=== PATIENT | female | born 1975 | race Caucasian/White ===

== ENCOUNTER 2022-02-15 09:53 | Outpatient (CLI) | payer OTHER, SELFPAY ==
--- NOTE | 2022-02-16 22:23 | WPDPFTINT ---
PFT Procedure Performed PFT Procedure Performed Spirometry with Pre/Post Bronchodilator Plethysmography (Lung Vol) Diffusing Cap (DLCO) Flow Vol Loop PFT Interpretation DOS: 02/15/2022 REQUESTING: Dr. Matt Moraes REASON FOR TESTING: Dyspnea PULMONARY FUNCTION TESTS Results are reliable and reproducible Spirometry: Pre-bronchodilator FEV1 is 91% predicted, 2.91 L, normal. Pre bronchodilator FVC is 93% predicted, 3.71 L, normal. The FEV1/FVC ratio is 78%, normal. There is no significant change in flows after bronchodilator administration. Lung volumes: Total lung capacity is 77% predicted, 4.22 L, mildly reduced consistent with a mild restrictive pattern. FRC is 88% predicted, 2.71 L, normal. ERV is 49%, 0.61 L, reduced. Residual volume is 28% predicted, 0.51 L, reduced. RV/TLC is 12%, reduced. Airway resistance is increased. Diffusion: DLCO is 97%, normal. Flow volume loop: Unremarkable. IMPRESSION: This study shows normal spirometry without response to bronchodilator, a mild restrictive impairment without air trapping, and normal diffusion. A normal DLCO with decreased TLC suggests a non-pulmonary cause for restriction. The BMI is not elevated which eliminates obesity as a cause. Consider a chest x-ray to evaluate for elevated diaphragm. Restriction can mask obstruction. Shayy Foster MD
== END 2022-02-15 09:54 | disposition home or self-care (01) ==
LOC: ANHPFT 09:55
PROVIDERS: PCP Family Medicine; Visit Provider Family Medicine
DX: R06.00 Dyspnea, unspecified (principal)
CPT/HCPCS: 94060; 94726; 94729

== ENCOUNTER 2022-02-17 14:52 | Outpatient (CLI) | payer OTHER, SELFPAY ==
--- NOTE | ~2022-02-17 | XR_ITS ---
XR chest 2V DATE: 02/17/2022 15:14 INDICATION: Dyspnea TECHNIQUE: PA and lateral views COMPARISON: None FINDINGS: Normal heart size. No hilar or mediastinal enlargement. No pulmonary infiltrate or consolid ation, pleural effusion or pulmonary vascular congestion or pneumothorax. Included skeletal structure s are unremarkable other than mild levoscoliosis of the upper thoracic spine. IMPRESSION: No active cardiopulmonary disease Reviewed, dictated and finalized at location A.
== END 2022-02-17 14:53 | disposition home or self-care (01) ==
PROVIDERS: PCP Family Medicine; Visit Provider Family Medicine
DX: R06.00 Dyspnea, unspecified (principal); M41.9 Scoliosis, unspecified
CPT/HCPCS: 71046

== ENCOUNTER 2025-02-05 07:22 | Outpatient (CLI) | payer OTHER, SELFPAY ==
--- NOTE | ~2025-02-05 | MM_ITS ---
EXAMINATION: MM screening eddie BI w feng HISTORY: Screening TECHNIQUE: Craniocaudal and mediolateral oblique 3-D tomosynthesis images were obtained and synthetic 2-D images were generated. CAD analysis was submitted and interpreted. COMPARISON: No prior mammogram is available for comparison at this institution. BREAST PARENCHYMAL COMPOSITION: Dense: The breasts are extremely dense, which lowers the sensitivity of mammography. FINDINGS: There are asymmetries in the upper outer quadrant of the right breast, posterior third and in the inferior and lateral aspects of the left breast. There are no suspicious calcifications. IMPRESSION: 1. Bilateral breast asymmetries. 2. Additional mammographic views and possible breast ultrasound are recommended. BI-RADS Category 0: Incomplete: Needs additional imaging evaluation. Reviewed, dictated and finalized at location B. IMPRESSION: 1. Bilateral breast asymmetries. 2. Additional mammographic views and possible breast ultrasound are recommended . BI-RADS Category 0: Incomplete: Needs additional imaging evaluation.
--- OUTSIDE RECORDS SUMMARY | 2025-02-05 07:26 | XMS_ITS | Clinical Summary ---
Author Organization [employer] 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 Gender Identity Not on file Sexual Orientation Not on file Plan of Treatment Health Maintenance Due Date Last Done Comments DTAP/TDAP/TD VACCINES (1 - Tdap) 1996 HEPATITIS B VACCINES (1 of 3 - 19+ 3-dose series) 1996 HPV/Cotest (21-29) 1998 PAP SMEAR 1998 CERVICAL CANCER SCREENING 2007 HPV/Cotest (30-65) 2007 PAP SMEAR 2007 BREAST CANCER SCREENING 2017 COLORECTAL SCREENING 2022 Colorectal Cancer Screening 2022 FIT-DNA Q 3 years 2022 FIT/FOBT Q 1 year 2022 Flex Sig/CT Colonography Q 5 years 2022 INFLUENZA VACCINE (#1) 2024 HPV VACCINES Aged Out No longer eligi ble based on patient's age to complete this topic PNEUMOCOCCAL VACCINE 0-49 YEARS Aged Out No longer eligible based on patient's age to complete this topic Insurance [facility] [id number] Care Teams Poultry Helper Relationship Specialty [place] [id number] [address] PCP - General Obstetrics and Gynecology 09/19/23
--- OUTSIDE RECORDS SUMMARY | 2025-02-05 07:27 | XMS_ITS | Clinical Summary ---
Author Organization [facility] Address [address] [place] [address] Care Team Providers Care Veneer Jointer Returner Name Role Phone Unavailable Primary Care Provider Unavailabl e Social History Tobacco Use Types Packs/Day Years Used Date Smoking Tobacco: Never Assessed Comments Unknown Sex and Gender Information Value Date Recorded Sex Assigned at Not on file Legal Sex Female 8:22 PM CDT Gender Identity Not on file Sexual Orientation Not on file Last Filed Vital Signs Vital Sign Reading Time Taken Comments Blood Pressure 102/58 07/13/2016 1:58 PM CDT Pulse 81 07/13/2016 1:58 PM CDT Temperature - - Respiratory Rate - - Oxygen Saturation - - Inhaled Oxygen Concentration - - Weight 70.8 kg (156 lb) 07/13/2016 1:58 PM CDT Height 170.2 cm (5' 7 ) 07/13/2016 1:58 PM CDT Body Mass Index 24.43 07/13/2016 1:58 PM CDT Plan of Treatment Health Maintenance Due Date Last Done Comments Cervical Cancer Screening Pa p Smear (Age 30 to 64) Every 3 Years 1977 Colorectal Cancer Screening Colonoscopy (10 Years) 1977 Annual Physical 1980 Hepatitis C 1995 DTaP, Tdap and Td Vaccines ( 1 - Tdap) 1996 Hepatitis B Vaccines (1 of 3 - 19+ 3-dose series) 1996 Cervical Cancer Screening Pa p with HPV Testing (Age 30 to 64) Every 5 Years 2007 Cervical Cancer Screening with HPV 2007 Mammogram Screening 2017 COVID-19 Vaccine (2023-2 5 season) 2024 Meningococcal B Vaccine Aged Out No l onger eligible based on patient's age to complete this topic Meningococcal Vaccine Aged Out No mariza denise eligible based on patient's age to complete this topic Pneumococcal Vaccine: Pediat rics (0 to 5 Years) and At-Risk Patients (6 to 49 Years) Aged Out No longer eligible b ased on patient's age to complete this topic RSV Immunizations Under 20 Months Aged Out No longer eligible based on patient's age to complete this topic
--- OUTSIDE RECORDS SUMMARY | 2025-02-05 07:27 | XMS_ITS | Clinical Summary ---
Author Organization [facility] [employer] Address [address] [place] [address] Care Team Providers Care Core Laying Machine Operator Name Role Phone Unavailable Primary Care Provider Unavailabl e Source Comments [facility] [employer],non-owned Affiliates and Associated Physician Practices is amultiple site organization consisting of ambulatory clinics and hospital sitesin [place], [place], [place] and [place]. This disclosure is being madepursuant to the Care Everywhere program and may not contain all information available regarding this patient. Last updated 18.doo [facility] Allergies No known active allergies Medications * Be aware that medications may not be up to date on this document. Alwaysverify current medications with the patient. hydrocortisone (HYTONE) 2.5 % ointment 30 g 1 11/29/2017 Active phentermine (Adipex-P) 37.5 MG tablet TAKE 1/2 TO 1 TABLET BY MOUTH EVERY MORNING FOR WEIGHT LOSS 01/07/2024 Active spironolactone (Aldactone) 100 MG tablet Take 0.5 (one-half) tablet by mouth once daily 12/30/2023 Active multivitamins plus minerals chew tablet Take 1 (one) tablet by mouth daily with food Active vitamin D3 (Cholecalcifero l) 10 MCG (400 UNIT) tablet Take 1 (one) tablet by mouth once daily Active tranexamic acid (Lysteda) 650 MG tablet Take 2 (two) tablets by mouth 3 times daily 30 tablet 11 01/26/2024 Active Family History Medical History Relation Name Comments Cancer - Skin, Non Melanoma Mother CVA Neg Hx Cancer - Breast Neg Hx Cancer - Other Neg Hx Cancer - Skin, Melanoma Neg Hx Eczema Neg Hx Hemophilia Neg Hx Psoriasis Neg Hx Relation Name Status Comments Mother Social History Tobacco Use Types Packs/Day Years Used Date Smoking Tobacco: Never Passive Smoke Exposure: Never Smokeless Tobacco: Never Tobacco Cessation:Counseling Given: Not Answered Alcohol Use Standard Drinks/Week Comments Not Currently 0 (1 standard drink = 0.6 oz pur e alcohol) socially PHQ-2 Answer Date Recorded Patient Health Questionnaire-2 Score 0 01/26/2024 Comments Unknown Sex and Gender Information Value Date Recorded Sex Assigned at Not on file 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 Gender Identity Not on file Sexual Orientation Not on file Last Filed Vital Signs Vital Sign Reading Time Taken Comments Blood Pressure 122/70 01/26/2024 3:07 PM CDT Pulse - - Temperature - - Respiratory Rate - - Oxygen Saturation - - Inhaled Oxygen Concentration - - Weight 70.8 kg (156 lb) 01/26/2024 3:07 PM CDT Height 170.2 cm (5' 7 ) 01/26/2024 3:07 PM CDT Body Mass Index 24.43 01/26/2024 3:07 PM CDT Plan of Treatment Health Maintenance Due Date Last Done Comments COLOGUARD (AGES 45-75) - COL ON CA SCREENING 1977 COLON MONITORING 1977 COLONOSCOPY - COLON CA SCREENING 1977 CT COLONOGRAPHY - COLON CA SCREENING 1977 Colorectal Cancer Screening 1977 FIT - COLON CA SCREENING 1977 FLEX SIG - COLON CA SCREENING 1977 LIPID TESTING 1977 MAMMOGRAM 1977 PAP SMEAR 1977 HIV SCREENING 1992 HEPATITIS C SCREENING 11/29/1995 DTAP/TDAP/TD VACCINES (1 - Tdap) 1996 HEPATITIS B VACCINE (1 of 3 - 19+ 3-dose series) 1996 COVID-19 VACCINE ( - 2023-2 5 season) 2024 DEPRESSION SCREENING 10/24/2024 01/26/2024 INFLUENZA VACCINE (Season Ended) 2025 ZOSTER VACCINE (1 of 2) 2027 HIB VACCINE Aged Out No longer eligi ble based on patient's age to complete this topic HPV VACCINE Aged Out No longer eligi ble based on patient's age to complete this topic MENINGOCOCCAL (Group B) VACC INE SHARED DECISION-MAKING Aged Out No longer eligibl e based on patient's age to complete this topic MENINGOCOCCAL GROUPS A/C/Y/W VACCINE Aged Out No longer eligible b ased on patient's age to complete this topic PNEUMOCOCCAL VACCINE Aged Out No long er eligible based on patient's age to complete this topic [place] [address] [facility]
--- OUTSIDE RECORDS SUMMARY | 2025-02-05 07:27 | XMS_ITS | Encounter Summary ---
Author Organization [facility] Address [address] [place] [address] Care Team Providers Care Data Warehousing Specialist Name Role Phone Unavailable Primary Care Provider Unavailabl e Encounter Details Date Type Department Care Team (Late st Contact Info) Description 03/26/2024 Lab Requisition [facility] - DermPath Lab [address] [facility] [place] [address] Nakia Riley DO [address] [facility] [address] [place] [address] Social History Tobacco Use Types Packs/Day Years Used Date Smoking Tobacco: Never Passive Smoke Exposure: Never Smokeless Tobacco: Never Alcohol Use Standard Drinks/Week Comments Not Currently 0 (1 standard drink = 0.6 oz pur e alcohol) socially PHQ-2 Answer Date Recorded Patient Health Questionnaire-2 Score 0 01/26/2024 Comments Unknown Sex and Gender Information Value Date Recorded Sex Assigned at Not on file 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 Gender Identity Not on file Sexual Orientation Not on file documented as of this encounter Plan of Treatment Not on file documented as of this encounter Procedures Procedure Name Priority Date/Time Associated Diagnosis Comments DERMATOPATHOLOGY Routine 03/26/2024 9:41 AM CDT documented in this encounter Results * DERMATOPATHOLOGY (03/26/2024 9:41 AM CDT) Case Report Dermatopathology Report Case: [id number] Authorizing Provider: Nakia Riley DO Collected: 03/26/2024 09:41 AM Ordering Location: [facility] - Received: 03/26/2024 03:34 PM DermPath Lab Pathologist: Taryn Barksdale MD Specimen: Skin, right thigh 2:56 PM CDT DERMATOPATHOLOGY LABORATORY Final Diagnosis Specimen A. SKIN, right thigh: DERMATOFIBROMA (D23.9) 2:56 PM T DERMATOPATHOLOGY LABORATORY Clinical History Df r/o Atypia 2:56 PM CDT DERMATOPATHOLOGY LABORATORY Gross Description Specimen A: Received is one formalin filled container labeled with the patient's name and designated right thigh. The specimen consists of a shave biopsy measuring 7x5x2 mm. Jar 0. 2:56 PM CDT DERMATOPATHOLOGY LABORATORY Microscopic Description Specimen A. SKIN, right thigh: There is epidermal hyperplasia. Within the dermis, there are fibrohistiocytic cells in haphazard array among coarse collagen bundles. 2:56 PM CDT DERMATOPATHOLOGY LABORATORY Disclaimer An external and internal positive and negative controls are appropriate for the histochemical, immunohistochemical and immunofluorescence stain(s) in this case (if any), except where stated explicitly. The performance characteristics of the stain(s) cited in this report were developed and its performance characteristic determined by the Dermatopathology Laboratory at [facility], directed by Dr. Laura Reardon. These tests need not be, and therefore are not, approved by the [place] Food and Drug Administration. The tests are used for clinical purposes. Billing Codes Specimen Charges Stain Charges 35628 1 2:56 PM CDT DERMATOPATHOLOGY LABORATORY Embedded Images 2:56 PM CDT DERMATOPATHOLOGY LABORATORY Pathology/Cytolo gy TISSUE SPECIMEN FROM SKIN / Unknown 03/26/2024 9:41 AM CDT 03/26/2024 3:34 PM CDT us Nakia Riley DO LAB - PATHOLOGY/CYTOLOGY ORDERABLES Final Result DERMATOPATHOLOGY LABORATORY [facility] - Department of Dermatology [address], [address] [phone] documented in this encounter Visit Diagnoses Not on filedocumented in this encounter
== END 2025-02-05 07:23 | disposition home or self-care (01) ==
LOC: CHSIMG 07:24
PROVIDERS: PCP Family Medicine; Visit Provider Specialist
DX: Z12.31 Encounter for screening mammogram for malignant neoplasm of breast (principal)
CPT/HCPCS: 77063; 77067

== ENCOUNTER 2025-02-22 10:34 | Outpatient (CLI) | payer OTHER, SELFPAY ==
--- NOTE | ~2025-02-22 | MMUS_ITS ---
EXAMINATION: MM diagnostic eddie BI w feng, US breast BI complete HISTORY: Follow-up breast asymmetries TECHNIQUE: Additional 3-D tomosynthesis images of the breasts were performed and synthetic 2-D images were generated. CAD analysis was submitted and interpreted. High resolution bilateral complete breas t ultrasound was performed. COMPARISON: Mammogram dated 02/05/2025 BREAST PARENCHYMAL COMPOSITION: Dense: The breasts are extremely dense, which lowers the sensitivity of mammography. FINDINGS: MAMMOGRAPHIC FINDINGS: There are no suspicious masses, calcifications or architectural distortion in either breast to sugges t malignancy. ULTRASOUND: Complete US of all 4 quadrants of the breast/s and retroareolar region was reviewed. Right breast: There are multiple cysts of the right breast. There are no suspicious masses in the rig ht breast to suggest malignancy. Left breast: There are multiple cysts of the left breast. At 2:00, 3 cm from the nipple there is an o mario hypoechoic 5 mm mass with parallel orientation, posterior acoustic enhancement and no internal va scularity, likely benign. At 7:00, 6 cm from the nipple there is an oval parallel oriented hypoechoic mass measuring 6 x 4 x 3 mm with heterogeneous internal echoes, no significant posterior features an d no internal vascularity, likely benign. IMPRESSION: 1. No evidence for malignancy in the right breast. Benign findings. Probable benign left breast kal s identified by ultrasound. 2. Recommend 6 month follow-up Limited left breast ultrasound BI-RADS category 3, probably benign findings. Reviewed, dictated and finalized at location A. IMPRESSION: 1. No evidence for malignancy in the right breast. Benign findings. Probable be nign left breast masses identified by ultrasound. 2. Recommend 6 month follow-up Limited left breast ultrasound BI-RADS category 3, probably benign findings.
--- OUTSIDE RECORDS SUMMARY | 2025-02-23 11:59 | XMS_ITS | Clinical Summary ---
Author Organization [facility] [employer] Address [address] [facility] [place] [address] Care Team Providers Care Physician Assistant Certified Name Role Phone Unavailable Primary Care Provider Unavailabl e Source Comments [facility] [employer],non-owned Affiliates and Associated Physician Practices is amultiple site organization consisting of ambulatory clinics and hospital sitesin [place], [place], [place] and [place]. This disclosure is being madepursuant to the Care Everywhere program and may not contain all information available regarding this patient. 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
--- OUTSIDE RECORDS SUMMARY | 2025-02-23 11:59 | XMS_ITS | Data Portability ---
Author Organization [employer] Address [address] [place] [phone] Assessment No assessment recorded. Plan of Treatment Reminders Order Date Submit Date Provider Last Modified By Organization Details Last Modified Time Details Appointments None recorded. Lab None recorded. Referral None recorded. Procedures None recorded. Surgeries None recorded. Imaging XR, ankle - room 14 016 016 Not available 6 04:28:20 XR, ankle - room 15. patient is NWB. Rule out fibula fx. 016 016 Not available 6 04:28:22 Medication Orders None recorded. Patient TargetsNo targets recorded. Patient InstructionsNo instructions recorded. Reason for Referral None Reported. Medical Equipment None Reported. Allergies No known drug allergies Medications Name Sig Start Date Stop Date Status Note LastModified by Organization Details LastModified Time norethindrone acetate 5 mg tablet active Not Available Not Available Not Available Vitals Date Recorded Body height Body weight Body mass index (BMI) Heart rate Systolic blood pressure Diastolic blood pressure Provider Name and Address Organization Details Last Updated DateTime 6 170.18 cm 71052.8 6 g 23.5 kg/m2 69 /min 118 mm[Hg] 69 mm[Hg] Re Hedrick [employer] 6 12:20:31 Date Recorded Body height Body weight Body mass index (BMI) Provider Name and Address Organization Details Last Updated DateTime 07/09/2016 170.18 cm 49878.86 g 23.5 kg/m2 Demarcus Fagan [employer] 07/09/2016 11:00:14 Social History None recorded. Functional Status None recorded. Mental Status None recorded. Family History Relationship Description Onset Age of this Age Resolved Age Notes LastModified by Organization Details LastModified Time Maternal Grandfather Diabetes mellitus [email or web address] Not available 04/2016 12:21:45 Maternal Grandfather Hypertensive disorder [email or web address] Not available 04/2016 12:22:02 Maternal Uncle Diabetes mellitus [email or web address] Not available 04/2016 12:21:45 Paternal Aunt Malignant neoplastic disease [email or web address] Not available 04/2016 12:22:12 Father Rheumatoid arthritis [email or web address] Not available 04/2016 12:22:33 Medical History Condition Response Coronary Artery Disease N HIV or AIDS N Gout N Kidney Stones N Hyperthyroidism N Head Trauma/Injury N Hernia N Depression N COPD N Blood Clots N Lung Disease N Hypothyroidism N Pacemaker N Anxiety Disorder N Arthritis N Cancer N Stroke N Neck Injury N Leg or Foot Ulcers N High Cholesterol N Liver Disease N Rheumatoid Arthritis N Headaches N Fibromyalgia N Kidney Disease N Heart Problems N Migraines N Thyroid Problems N Anemia N Multiple Sclerosis N Ulcers N Heart Attack ([place]) N Diabetes N Bleeding Disorder N Seizures/Epilepsy N Tuberculosis N Urinary Tract Infection N Back Problems N Diverticulitis N Asthma N Lupus N Peripheral Vascular Disease N Sleep Disorder N GERD/Reflux N Hepatitis N Aneurysm N Heart Disease N Pulmonary Embolism N Hypertension N Osteoporosis N Gynecological HistoryNo gynecological history recorded. Obstetrics History GPAL:G 0 P 0 0 0 0 Past Encounters Encounter ID Performer Location Encounter Start Date Encounter Closed Date Diagnosis/Indication Diagnosis SNOMED-CT Code Diagnosis ICD10 Code Diagnosis Note [id number] Brian España MD [facility] [address] [place] [id number] 06/30/2016 12:01:12 06/30/2016 15:26:46 Ankle pain 980963747 M25.572 [id number] Brian España MD [facility] [address] [place] [phone] 07/09/2016 10:52:09 07/09/2016 15:57:10 Ankle pain 980127603 M25.572 Health Concerns Section Related Observation LastModified by Organization Detai ls LastModified Time None Recorded Concern Status LastModified by Organization Details LastModified Time None Recorded Advance Directives Directive None Recorded Payers Encounter Date Sequence Insurance Name Policy Number Policy Limon Covered Member ID Limon Member ID Guarantor Name 06/30/2016 1 [facility] (O) [id number] Jaydon Estrada [id number] Jaydon Estrada 07/09/2016 1 [facility] (O) [id number] Jaydon Estrada [id number] Jaydon Estrada OBGyn Episode No OBEpisode recorded.
--- OUTSIDE RECORDS SUMMARY | 2025-02-23 11:59 | XMS_ITS | Encounter Summary ---
Author Organization [facility] Address [address] [facility] [place] [address] Care Team Providers Care Char Filter Tank Tender Head Name Role Phone Unavailable Primary Care Provider Unavailabl e Encounter Details Date Type Department Care Team (Late st Contact Info) Description 03/26/2024 Lab Requisition [facility] - DermPath Lab [address] [facility] [place] [address] Nakia Riley DO [address] [facility] [address] [place] [address] Social History Tobacco Use Types Packs/Day Years [...] on file 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 Gender Identity Not on file Sexual Orientation Not on file documented as of this encounter Plan of Treatment Not on file documented as of this encounter Procedures Procedure Name Priority Date/Time Associated Diagnosis Comments DERMATOPATHOLOGY Routine 03/26/2024 9:41 AM CDT documented in this encounter Results * DERMATOPATHOLOGY (03/26/2024 9:41 AM CDT) Case Report Dermatopathology Report Case: [id number] Authorizing Provider: Nakia Riley DO Collected: 03/26/2024 09:41 AM Ordering Location: [facility] - Received: 03/26/2024 03:34 PM [...] characteristic determined by the Dermatopathology Laboratory at [facility], directed by Dr. Laura Reardon. These tests need not be, and therefore are not, approved by the [place] Food and Drug Administration. The tests are used for clinical purposes. Billing Codes Specimen Charges Stain Charges 58862 1 2:56 PM CDT DERMATOPATHOLOGY LABORATORY Embedded Images 2:56 PM CDT DERMATOPATHOLOGY LABORATORY Pathology/Cytolo gy TISSUE SPECIMEN FROM SKIN / Unknown 03/26/2024 9:41 AM CDT 03/26/2024 3:34 PM CDT us Nakia Riley DO LAB - PATHOLOGY/CYTOLOGY ORDERABLES Final Result DERMATOPATHOLOGY LABORATORY [facility] - Department of Dermatology [address], [address] [phone] documented in this encounter Visit Diagnoses Not on filedocumented in this encounter
--- OUTSIDE RECORDS SUMMARY | 2025-02-23 11:59 | XMS_ITS | Clinical Summary ---
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 Gender Identity Not on file Sexual Orientation Not on file Plan of Treatment Health Maintenance Due Date Last Done Comments DTAP/TDAP/TD VACCINES (1 - Tdap) 1996 HEPATITIS B VACCINES (1 of 3 - 19+ 3-dose series) 11/24 HPV/Cotest (21-29) 1998 CERVICAL CANCER SCREENING 2007 HPV/Cotest (30-65) 2007 PAP SMEAR 2007 BREAST CANCER SCREENING 2017 COLORECTAL SCREENING 2022 Colorectal Cancer Screening 2022 FIT-DNA Q 3 years 2022 FIT/FOBT Q 1 year 2022 Flex Sig/CT Colonography Q 5 years 2022 INFLUENZA VACCINE (#1) 2024 Insurance [employer] [id number] Care Teams Youth Services Librarian Relationship Specialty [place] [address] [place] [phone] PCP - General Obstetrics and Gynecology 09/19/23
--- OUTSIDE RECORDS SUMMARY | 2025-02-23 11:59 | XMS_ITS | Clinical Summary ---
Author Organization [facility] Address [address] [place] [address] Care Team Providers Care Tank Truck Loader Name Role Phone Unavailable Primary Care Provider [...]
== END 2025-02-22 10:35 | disposition home or self-care (01) ==
LOC: ANHIMG 10:41
PROVIDERS: PCP Family Medicine
DX: Z12.31 Encounter for screening mammogram for malignant neoplasm of breast (principal); R92.8 Other abnormal and inconclusive findings on diagnostic imaging of breast
CPT/HCPCS: 76641; 77062; 77066; G0279

== ENCOUNTER 2025-02-28 12:48 | Outpatient (CLI) | payer OTHER, SELFPAY ==
--- NOTE | ~2025-02-28 | US_ITS ---
Pelvic ultrasound. Clinical History: Hormone replacement Technique: Realtime transvaginal scanning of the pelvis was performed. Color flow Doppler and Doppler spectral analysis were performed. Findings: The uterus is anteverted. The endometrial stripe has a thickness of 4 mm. 1.5 cm anterior wall fibroid present. Cervical nabothian cyst present. The right ovary measures 2.8 x 2.3 x 2.5 cm. No significant right ovarian or adnexal mass is seen. The left ovary measures 2.0 x 2.1 x 2.2 cm. No significant left ovarian or adnexal mass is seen. There is no evidence of free fluid in the cul de sac. Impression: 1.5 cm uterine fibroid. Small follicular ovarian cysts are present. Reviewed, dictated and finalized at [facility]. Impression: 1.5 cm uterine fibroid. Small follicular ovarian cysts are present.
--- OUTSIDE RECORDS SUMMARY | 2025-02-28 12:56 | XMS_ITS | Clinical Summary ---
Author Organization [facility] Address [address] [place] [address] Care Team Providers Care Stonemason Name Role Phone Unavailable Primary Care Provider [...]
--- OUTSIDE RECORDS SUMMARY | 2025-02-28 12:56 | XMS_ITS | Clinical Summary ---
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
--- OUTSIDE RECORDS SUMMARY | 2025-02-28 12:56 | XMS_ITS | Encounter Summary ---
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 Gender Identity Not on file Sexual Orientation Not on file documented as of this encounter Plan of Treatment Not on file documented as of this encounter Procedures Procedure Name Priority Date/Time Associated Diagnosis Comments DERMATOPATHOLOGY Routine 03/26/2024 9:41 AM CDT documented in this encounter Results * DERMATOPATHOLOGY (03/26/2024 9:41 AM CDT) Case Report Dermatopathology Report Case: [id number] Authorizing Provider: Nakia Riley DO Collected: 03/26/2024 09:41 AM Ordering Location: [facility] - Received: 03/26/2024 03:34 PM [...] characteristic determined by the Dermatopathology Laboratory at [facility], directed by Dr. Laura Reardon. These tests need not be, and therefore are not, approved by the [place] Food and Drug Administration. The tests are used for clinical purposes. Billing Codes Specimen Charges Stain Charges 84306 1 2:56 PM CDT DERMATOPATHOLOGY LABORATORY Embedded Images 2:56 PM CDT DERMATOPATHOLOGY LABORATORY Pathology/Cytolo gy TISSUE SPECIMEN FROM SKIN / Unknown 03/26/2024 9:41 AM CDT 03/26/2024 3:34 PM CDT us Nakia Riley DO LAB - PATHOLOGY/CYTOLOGY ORDERABLES Final Result DERMATOPATHOLOGY LABORATORY [facility] - Department of Dermatology [address], [address] [phone] documented in this encounter Visit Diagnoses Not on filedocumented in this encounter
--- OUTSIDE RECORDS SUMMARY | 2025-02-28 12:56 | XMS_ITS | Clinical Summary ---
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 Gender Identity Not on file Sexual Orientation Not on file Plan of Treatment Health Maintenance Due Date Last Done Comments Hepatitis C Virus (HCV) Screening 1977 TdaP Immunization 1977 Hepatitis B Immunization (1 of 3 - 19+ 3-dose series) 1996 Pap Smear 1998 Cervical Cancer Screening (CCS) 2007 HPV/Cotest 2007 Discussion re Starting/Frequ ency of Mammograms 2017 Colonoscopy 2022 Colorectal Cancer Screening 2022 Influenza Immunization (#1) 2024 SARS-COV-2 Immunization ( season) 2024 Respiratory Syncytial Virus (RSV) Immunization (Adult) (1 - 1-dose 75+ series) 2052 Meningococcal Immunization (ACWY) Aged Out No longer eligible based on patient's age to complete this topic Pneumococcal Immunization Combined Aged Out No longer eligible based on patient's age to complete this topic Rotavirus Immunization Aged Out No lo nger eligible based on patient's age to complete this topic
--- OUTSIDE RECORDS SUMMARY | 2025-02-28 12:56 | XMS_ITS | Data Portability ---
Author Organization [employer], [facility] Address [address] [place] [phone] Assessment No assessment recorded. Plan of Treatment [...] Details Last Updated DateTime 6 170.18 cm 43984.8 6 g 23.5 kg/m2 69 /min 118 mm[Hg] 69 mm[Hg] Re Hedrick [facility] 6 12:20:31 Date Recorded Body height Body weight Body mass index (BMI) Provider Name and Address Organization Details Last Updated DateTime 07/09/2016 170.18 cm 55837.86 g 23.5 kg/m2 Demarcus Fagan [facility] 07/09/2016 11:00:14 Social History None recorded. Functional [...] available 04/2016 12:22:33 Medical History Condition Response HIV or AIDS N Coronary Artery Disease N Gout N Kidney Stones N Hyperthyroidism N Hernia N Head Trauma/Injury N Hypothyroidism N Lung Disease N Blood Clots N COPD N Depression N Pacemaker N Anxiety Disorder N Arthritis N Cancer N Stroke N Leg or Foot Ulcers N Neck Injury N High Cholesterol N Liver Disease N Rheumatoid Arthritis N Fibromyalgia N Headaches N Kidney Disease N Heart Problems N Migraines N Thyroid Problems N Anemia N Multiple Sclerosis N Ulcers N Heart Attack ([place]) N Diabetes N Bleeding Disorder N Seizures/Epilepsy [...] SNOMED-CT Code Diagnosis ICD10 Code Diagnosis Note [id number] Brian España MD [facility] [address] [place] [phone] 06/30/2016 12:01:12 06/30/2016 15:26:46 Ankle pain [id number] M25.572 [id number] Brian España MD [facility] [address] [place] [phone] 07/09/2016 10:52:09 07/09/2016 15:57:10 Ankle pain [id number] M25.572 Health Concerns Section Related Observation LastModified by Organization Detai ls LastModified Time None Recorded Concern Status LastModified by Organization Details LastModified Time None Recorded Advance Directives Directive None Recorded Payers Encounter Date Sequence Insurance Name Policy Number Policy Limon Covered Member ID Limon Member ID Guarantor Name 06/30/2016 1 [facility] (O) [id number] Jaydon Estrada [id number] Jaydon Estrada 07/09/2016 1 [facility] (O) [id number] Jaydon Estrada [id number] Jaydon Estrada OBGyn Episode No OBEpisode recorded.
--- OUTSIDE RECORDS SUMMARY | 2025-02-28 12:56 | XMS_ITS | Clinical Summary ---
Author Organization [facility] [employer] Address [address] [place] [address] Care Team Providers Care Car Unloader Name Role Phone Unavailable Primary Care Provider Unavailabl e Source Comments [facility] [employer],non-owned Affiliates and Associated Physician Practices is amultiple site organization consisting of ambulatory clinics and hospital sitesin [place], [place], [place] and [place]. This disclosure is being madepursuant to the Care Everywhere program and may not contain all information available regarding this patient. Last updated 18.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
== END 2025-02-28 12:49 | disposition home or self-care (01) ==
PROVIDERS: PCP Family Medicine
DX: D25.9 Leiomyoma of uterus, unspecified (principal); Z00.8 Encounter for other general examination; N83.02 Follicular cyst of left ovary; N83.01 Follicular cyst of right ovary; E28.39 Other primary ovarian failure; E34.9 Endocrine disorder, unspecified; E55.9 Vitamin D deficiency, unspecified; R53.83 Other fatigue; E72.11 Homocystinuria; E28.2 Polycystic ovarian syndrome; L70.0 Acne vulgaris; L68.0 Hirsutism; K75.81 Nonalcoholic steatohepatitis (NASH); Z68.27 Body mass index [BMI] 27.0-27.9, adult; E66.3 Overweight; Z86.39 Personal history of other endocrine, nutritional and metabolic disease
CPT/HCPCS: 76830